=== PATIENT | male | born 1970 | race Caucasian/White ===

== ENCOUNTER → 2020-07-25 | Day surgery (SDC) | payer OTHER ==
[~2020-07-25] VITALS: Ht 182.9 cm; Wt 138.3 kg
[~2020-07-25] MED LIST: ATIVAN1 MG PO; B-12500 MC1 IJ; CLARITIN10 MG PO; NEXIUM20 MG PO; ONDANSETRON ODT8 MG PO; PRINIVIL20 MG PO; VICODIN 10/3251 EACH PO; VITAMIN B-121000 MC1 PO; VITAMIN D21250 MCG PO; XYOSTED50 MG/0.5 IJ; ZETIA10 MG PO
[2020-07-25 09:49] LABS: HCT 51.1 % (42.0-52.0); HGB 17.3 g/dl (13.2-18.0); MCH 31.4 pg (25.0-31.0); MCHC 33.9 g/dL (32.0-36.0); MCV 92.7 fL (78.0-100.0); MPV 10.7 fL (6.0-9.5); RBC 5.51 M/uL (4.70-6.00); RDW 12.4 % (11.5-14.0); WBC 10.3 K/uL (4.0-10.5)
[2020-07-25 10:51] LABS: BILIRUBIN - TOTAL 0.9 mg/dL (0.2-1.0); BUN/CREAT RATIO (CALC) 9.9 RATIO; CREATININE 1.01 mg/dL (0.67-1.17); GLOBULIN (CALCULATION) 3.8 g/dL; POTASSIUM 4.1 mmol/L (3.5-5.1); TOTAL PROTEIN 7.8 g/dL (6.4-8.2)
== END | disposition home or self-care (01) ==
LOC: FAS 09:06
PROVIDERS: Surgery
DX: K80.10 Calculus of gallbladder with chronic cholecystitis without obstruction (principal); K82.8 Other specified diseases of gallbladder; I10 Essential (primary) hypertension; F41.9 Anxiety disorder, unspecified; E78.00 Pure hypercholesterolemia, unspecified; G35 Multiple sclerosis; K21.9 Gastro-esophageal reflux disease without esophagitis; Z88.0 Allergy status to penicillin; Z79.899 Other long term (current) drug therapy
CPT/HCPCS: 36415; 74300; 80053; 93005; C1758; J1100; J1170; J2250; J2405; J2704; J2710; J3010; J7120; Q9967

== ENCOUNTER → 2020-11-28 | Day surgery (SDC) | payer OTHER ==
[~2020-11-28] VITALS: Ht 182.9 cm; Wt 133.8 kg
[~2020-11-28] MED LIST changes: +NORCO 5-325 TA1 EACH PO; +OCREVUS300 MG/10 IV
[2020-11-28 07:43] LABS: HCT 42.9 % (42.0-52.0); HGB 14.4 g/dl (13.2-18.0); MCH 31.4 pg (25.0-31.0); MCHC 33.6 g/dL (32.0-36.0); MCV 93.7 fL (78.0-100.0); MPV 10.7 fL (6.0-9.5); RBC 4.58 M/uL (4.70-6.00); RDW 12.2 % (11.5-14.0); WBC 10.3 K/uL (4.0-10.5)
[2020-11-28 07:53] LABS: ALBUMIN 3.8 g/dL (3.4-5.0); BILIRUBIN - TOTAL 0.6 mg/dL (0.2-1.0); BUN/CREAT RATIO (CALC) 20.2 RATIO; CREATININE 0.84 mg/dL (0.67-1.17); GLOBULIN (CALCULATION) 3.3 g/dL; POTASSIUM 4.3 mmol/L (3.5-5.1); TOTAL PROTEIN 7.1 g/dL (6.4-8.2)
== END | disposition home or self-care (01) ==
LOC: FAS 06:46
PROVIDERS: Surgery
DX: K43.6 Other and unspecified ventral hernia with obstruction, without gangrene (principal); Z79.899 Other long term (current) drug therapy; Z88.0 Allergy status to penicillin; Z90.49 Acquired absence of other specified parts of digestive tract
CPT/HCPCS: 36415; 80053; J0690; J1170; J2250; J2405; J2550; J2704; J3010; J7120